=== PATIENT | female | born 1950 | race Caucasian/White ===

== ENCOUNTER 2017-10-23 08:40 | Emergency (ER) | payer BC ==
[~2017-10-23] VITALS: Ht 149.9 cm; Wt 65.0 kg
[2017-10-23] MEDS ORDERED: SYMB8060 IH (09:18)
[2017-10-23] MEDS ORDERED: NAPR250T4 PO (09:18)
[2017-10-23] MEDS ORDERED: KETOROLAC TROMETHAMINE 60 MG/2 ML VIAL IM ONE (10:45)
[2017-10-23] MEDS ORDERED: METHOCARBAMOL 500 MG TABLET PO ONE (10:45)
[2017-10-23 12:00] VITALS: BP 127/64
== END 2017-10-23 12:06 | disposition home or self-care (01) ==
LOC: EMS 08:43
DX: S20.211A Contusion of right front wall of thorax, initial encounter (principal); J45.909 Unspecified asthma, uncomplicated; V49.40XA Driver injured in collision with unspecified motor vehicles in traffic accident, initial encounter; Y93.89 Activity, other specified; Y92.89 Other specified places as the place of occurrence of the external cause; Y99.8 Other external cause status
CPT/HCPCS: 71045; 96372; 99283; J1885